=== PATIENT | male | born 1985 | race Native Hawaiian/Other Pacific Islander ===

== ENCOUNTER 2017-04-24 08:24 | Day surgery (SDC) | payer BC ==
[2017-04-24 08:45] VITALS: BMI 24.3
[2017-04-24] MEDS: Lactated Ringer's 500 ML IV ONE (09:02)
[2017-04-24] MEDS ORDERED: Midazolam 2 MG/2 ML VIAL ONE (10:02)
[2017-04-24] MEDS ORDERED: Lidocaine 2% MPF (5 ml) Inj ONE (10:02)
[2017-04-24] MEDS ORDERED: Propofol 10 mg/ml Inj (20 ML) ONE ×2 (10:02→10:30)
[2017-04-24 10:51] VITALS: TEMP 97.2
[2017-04-24 15:03] VITALS: BP 106/60; PULSE 98; RESP 15; O2SAT 100
== END 2017-04-24 11:45 | disposition home or self-care (01) ==
LOC: H.ENDO 08:24
PROVIDERS: ATTEND Internal Medicine Gastroenterology
DX: R10.9 Unspecified abdominal pain (principal); J45.909 Unspecified asthma, uncomplicated
CPT/HCPCS: 45378; 88305; J2250; J2704; J7120